=== PATIENT | female | born 2000 | race Caucasian/White ===

== ENCOUNTER 2019-05-24 00:46 | Emergency (ER) | payer SELFPAY ==
--- NOTE | ~2019-05-24 | XR_ITS ---
XR ankle RT min 3V DATE: 05/24/2019 01:12 INDICATION: Twisted ankle. Pain and swelling. TECHNIQUE: 4 views COMPARISON: None FINDINGS: No fracture or dislocation of the ankle or disruption of the ankle mortise. IMPRESSION: Negative Reviewed, dictated and finalized at location [facility]. UNIT TEACHER IMPRESSION: Negative
--- NOTE | 2019-05-24 00:57 | ED.LOWEXIN ---
HPI - Extremity Injury (Lower) General Chief Complaint: Extremity Injury, Lower Stated Complaint: Right ankle injury Time Seen by Provider: 05/24/19 00:50 Source: patient and family Mode of arrival: ambulatory Limitations: no limitations History of Present Illness HPI Narrative: A 19-year-old woman with history of a right patellar fracture comes in today complaining of right anterolateral ankle swelling and discomfort. Patient states that yesterday afternoon she twisted it while walking. She states that her pain with weight-bearing is gotten worse throughout the day. She has been limping. She denies any numbness, tingling, recent illness, fever. She states the pain radiates to her right medial knee. complaint: ankle injury Injury: Right: ankle Type of Injury: inversion Place: home Severity: moderate Relieving factors: rest Exacerbating factors: weight bearing, movement and palpation Context: walking Associated symptoms: swelling and able to partially bear weight Treatments prior to arrival: NSAIDS Related Data Home Medications Medication Instructions Recorded Confirmed albuterol sulfate 1 inh INHALATION QID PRN 05/24/19 05/24/19 Allergies Allergy/AdvReac Type Severity Reaction Status Date / Time No Known Allergies Allergy Unverified 09/30/16 14:35 Review of Systems Constitutional: Constitutional: Denies chills, Denies fever(s) and Denies weakness ENT: Denies dysphagia, Denies nasal congestion and Denies sore throat Cardiovascular: Cardiovascular: Denies chest pain and Denies radiating jaw, neck or arm pain Respiratory: Respiratory: Reports cough, Denies dyspnea and Denies wheezing Gastrointestinal: Gastrointestinal: Denies abdominal pain, Denies nausea and Denies vomiting Musculoskeletal: Musculoskeletal: Denies myalgias, Reports arthralgias, Reports joint swelling and Denies muscle cramps Integumentary/Breasts: Skin/Breast: Denies pruritus and Denies rash Neurologic: Denies vertigo, Denies syncope, Denies focal weakness and Denies numbness Psychiatric: Psychiatric: Denies anxiety and Denies depression Endocrine: Endocrine: Denies polydipsia and Denies polyuria Hematologic/Lymphatic: Hematologic/Lymphatic: Denies easy bleeding and Denies easy bruising Allergic/Immunologic: Allergic/Immunologic: Denies lip swelling and Denies wheezing PMFSH Past Medical History Medical History Asthma Fracture of right patella Ovarian cyst Social History Social History Smoking status: Current every day smoker Alcohol intake: current Alcohol use details: occasional Substance use: current Substance use type: marijuana Living arrangements: with family Exam Const: General: healthy appearing and alert Orientation/consciousness: patient oriented x3 Limitations: no limitations Other: mild acute distress. Resp: Effort & Inspection: normal respiratory effort, not labored and no retractions Auscultation: clear to auscultation bilaterally, no rales, no rhonchi and no wheezes Cardio: Rate: regular rate Rhythm: regular rhythm Heart sounds: no murmurs Skin: General skin exam: normal color, no jaundice and no pallor Rashes: no rashes Neuro: General: patient oriented x3, moves all extremities, no focal motor deficits and CN's II-XI intact bilaterally Extrem: General: normal to inspection and no clubbing, cyanosis or edema Other: Mild swelling without warmth or erythema on the right anterolateral ankle. There is mild tenderness over the right lateral malleolus but there is no deformity. Decreased range of motion secondary to discomfort. There is no tenderness along the calcaneus, metatarsals or the tarsals on the right. Mild tenderness to palpation of the medial joint line and the medial patella of the right knee. Normal range of motion without laxity. do a fusion to go warmth er
[2019-05-24 01:00] VITALS: BP 130/76; PULSE 100; RESP 20; TEMP 36.6; O2SAT 100
[2019-05-24 01:14] LABS: Pregnancy On Board Control Positive; Urine Pregnancy Test Negative
[2019-05-24 01:18] LABS: Specific Gravity Ur 1.025 (1.010-1.035)
[2019-05-24] MEDS: IBUPROFEN 400 MG TABLET PO (01:25)
[2019-05-24 02:01] VITALS: BP 120/72; PULSE 100; RESP 18; O2SAT 98
== END 2019-05-24 02:03 | disposition home or self-care (01) ==
PROVIDERS: Emergency Provider Emergency Medicine; PCP Family Medicine
DX: S93.491A Sprain of other ligament of right ankle, initial encounter (principal); X50.1XXA Overexertion from prolonged static or awkward postures, initial encounter
CPT/HCPCS: 29515; 73610; 81025; 99283; A9270; L0120

== ENCOUNTER 2019-12-12 15:14 | Emergency (ER) | payer BC, SELFPAY ==
--- NOTE | ~2019-12-12 | US_ITS ---
US OB >= 14 weeks Fetus DATE: 12/12/2019 16:14 INDICATION: Abdominal pain. 14 week gestation TECHNIQUE: Real-time imaging and Doppler analysis COMPARISON: None FINDINGS: Live nava intrauterine gestation, fetus active in a variable position during the exami nation. Anterior placenta. Subjectively normal amount of amniotic fluid. heart rate of 163 bpm. Biparietal diameter 3.11 cm; 15 weeks 5 days estimated gestational age Head circumference 11.44 cm; 15 weeks 4 days Abdominal circumference 8.66 cm; 15 weeks Femur length 1.45 cm; 14 weeks 2 days Composite age by [place] formula is 15 weeks 1 day +/- 1 week; JERMAINE by ultrasound is 06/03/2020 compar ed to 06/06/2020 by LMP. Estimated weight 105 +/- 16 grams. Head circumference/abdominal circumference measures 1.32, within normal range of 1.05-1.38. The ovaries are unremarkable; there is vascular flow to both ovaries. No pelvic mass or abnormal pelv ic fluid collection is detected. IMPRESSION: Estimated gestational age of 15 weeks 1 day +/- 1 week; JERMAINE by ultrasound is 06/03/2020 No significant abnormality identified Reviewed, dictated and finalized at Location [facility]. Reviewed, dictated and finalized at location A. IMPRESSION: Estimated gestational age of 15 weeks 1 day +/- 1 week; JERMAINE by ultr asound is 06/03/2020 No significant abnormality identified
[2019-12-12 15:24] VITALS: BP 130/66; PULSE 116; RESP 18; TEMP 36.6; O2SAT 100
[2019-12-12 15:36] LABS: Basophils Percent Auto 0.4 % (0.2-1.2); Eosinophils Absolute Auto 0.2 K/mm3 (0-0.3); Eosinophils Percent Auto 2.1 % (0-4.4); Hematocrit 34.8 % (37.0-47.0); Hemoglobin 11.8 g/dL (12.0-15.0); Immature Granulocyte Absolute 0.02 K/mm3 (0.00-0.031); Immature Granulocyte Percent A 0.2 % (0-0.5); Lymphocytes Absolute Auto 1.55 K/mm3 (0.9-3.2); Mean Corpuscular HGB Conc 33.9 g/dl (32-36); Mean Corpuscular Hemoglobin 31.2 pg (26-34); Mean Corpuscular Volume 92.1 fl (80-100); Mean Platelet Volume 11.1 fl (7.4-10.4); Monocytes Absolute Auto 0.5 K/mm3 (0.1-0.6); Monocytes Percent Auto 4.9 % (2.6-8.5); Neutrophils Absolute Auto 6.9 K/mm3 (1.3-6.7); Neutrophils Percent Auto 75.4 % (45.5-73.1); Platelet Count Result 232 k/mm3 (150-375); Red Blood Count 3.78 M/mm3 (4.2-5.4); Red Cell Distribution Width 13.2 % (11.5-14.5); White Blood Count 9.1 K/mm3 (4.5-10.0)
--- NOTE | 2019-12-12 15:39 | ED.ABDPAIN ---
HPI - Abdominal Pain General Chief Complaint: Abdominal Pain Stated Complaint: right lower abd pain/17 weeks preg Time Seen by Provider: 12/12/19 15:37 Source: patient Mode of arrival: ambulatory Limitations: no limitations History of Present Illness HPI narrative: Patient is a 19-year-old female currently 14 weeks who presents for evaluation of abdominal pain. Patient states she has had a one-week history of worsening, intermittent sharp abdominal pain that is located throughout her abdomen. She states she does feel the pain more severely on the right side and states that sometimes it radiates up into her right upper abdomen.No associated fever; she has had nausea associated with this . No worsened nausea or vomiting this week. She denies hematuria or dysuria. Patient's ENTERTAINMENT DIRECTOR is at [facility] of [facility]. Patient states she lives closest to this facility which is why she sought care here. She denies any recent fall, trauma or vaginal intercourse. She denies any vaginal bleeding, discharge or loss of fluids. Related Data Home Medications Medication Instructions Recorded Confirmed albuterol sulfate 1 inh INHALATION QID PRN 05/24/19 05/24/19 Allergies Allergy/AdvReac Type Severity Reaction Status Date / Time No Known Allergies Allergy Verified 12/12/19 15:35 Review of Systems Review of Systems: Narrative: CONSTITUTIONAL: Denies fever, chills, or sweats. CARDIOVASCULAR: Denies chest pain, palpitations, or edema. RESPIRATORY: Denies cough or dyspnea. GASTROINTESTINAL: Reports abdominal pain, nausea associate with , denies vomiting. GENITOURINARY: Denies dysuria or hematuria. SKIN: Denies rash or itching. MUSCULOSKELETAL: Denies back pain, joint pain, or myalgia. NEUROLOGIC: Denies headache, numbness, or weakness. P [facility] Past Medical History Medical History Asthma Bipolar depression Fracture of right patella Ovarian cyst Social History Social History Smoking status: Current every day smoker Alcohol intake: current Substance use: current Substance use type: marijuana Exam Narrative: Exam Narrative: GENERAL: Awake, alert, conversant HEAD: Normocephalic, atraumatic. EYES: PERRLA and EOMI. ENT: Nares clear, no rhinorrhea or epistaxis. Mucous membranes moist. NECK: Supple. CHEST: No respiratory distress, breathing even and non labored HEART: Regular rate, sinus rhythm ABDOMEN:Non distended, non tender, fundus palpable below the umbilicus, no focal right lower quadrant tenderness, nonrigid, no guarding, negative psoas sign EXTREMITIES: Normal range of motion. No edema. SKIN: Warm, dry, no rash. NEURO:No focal deficits. Alert and oriented x3 Course Vital Signs Vital signs: Vital Signs Temperature 36.6 C 12/12/19 15:24 Pulse Rate 116 H 12/12/19 15:24 Respiratory Rate 18 12/12/19 15:24 Blood Pressure 130/66 12/12/19 15:24 Pulse Oximetry 100 12/12/19 15:24 Temperature 36.6 C 12/12/19 15:24 Pulse Rate 116 H 12/12/19 15:24 Respiratory Rate 18 12/12/19 15:24 Blood Pressure 130/66 12/12/19 15:24 Pulse Oximetry 100 12/12/19 15:24 MDM - Abdominal Pain MDM Narrative Medical decision making narrative: Patient presented for evaluation of abdominal pain in the setting of second trimester . At the time of initial assessment, ABCs are intact and vital signs are stable. Patient does not have any focal tenderness on exam and has quite a benign abdominal exam. Patient was concern for acute appendicitis versus possible miscarriage although she states she is not having any bleeding, vaginal discharge or loss of fluids. Laboratory work-up is reassuring. She has stable, mild anemia which she is being treated for. No leukocytosis. I do not feel that patient has systemic symptoms of infection, and clinically she does not have findings
[2019-12-12 15:47] LABS: Alanine Aminotransferase 11 U/L (4-35); Albumin Level 4.1 g/dL (3.5-5.1); Alkaline Phosphatase 48 U/L (38-126); Anion Gap 6 mmol/L (8-16); Aspartate Amino Transferase 17 U/L (14-36); Bilirubin,Total 0.3 mg/dL (0.2-1.3); Blood Urea Nitrogen 5 mg/dL (7-17); Calcium 8.4 mg/dL (8.4-10.2); Carbon Dioxide 23 mmol/L (22-30); Chloride 107 mmol/L (98-107); Estimated CRCL calculation 168 ml/min; Estimated Glomerular Filt Rate > 60; Glucose 94 mg/dL (65-105); Lipase 60 U/L (23-300); Potassium 3.7 mmol/L (3.4-5.0); Sodium 136 mmol/L (137-145)
[2019-12-12 16:39] LABS: Add Urine Microscopic? YES; Appearance Urine Cloudy (Clear); Bacteria Urine Trace /hpf; Bilirubin Urine Negative (Negative); Blood Urine Negative (Negative); Color Urine Yellow (Yellow); Glucose Urine UA Negative (Negative); Ketones Urine Negative (Negative); Leukocyte Esterase Ur Negative LEU/UL (Negative); Mucus Urine Heavy /lpf; Nitrate Urine Negative (Negative); Protein Urine Negative (Negative); RBC Urine 0-2 /hpf (0-2); Squamous Epithelial Cell Urine Few /hpf (Few); WBC Urine 0-3 /hpf
== END 2019-12-12 17:29 | disposition home or self-care (01) ==
PROVIDERS: Family Medicine; Emergency Provider Emergency Medicine
DX: O26.892 Other specified pregnancy related conditions, second trimester (principal); R10.9 Unspecified abdominal pain; R82.71 Bacteriuria; O99.512 Diseases of the respiratory system complicating pregnancy, second trimester; J45.909 Unspecified asthma, uncomplicated; O99.332 Smoking (tobacco) complicating pregnancy, second trimester; F17.200 Nicotine dependence, unspecified, uncomplicated; Z3A.15 15 weeks gestation of pregnancy
CPT/HCPCS: 36415; 76805; 80053; 81001; 83690; 85025; 99284

== ENCOUNTER 2022-05-17 16:37 | Outpatient (CLI) | payer OTHER, SELFPAY ==
--- NOTE | ~2022-05-17 | US_ITS ---
EXAMINATION: US OB limited DATE: 05/17/2022 19:03 INDICATION: Leaking amniotic fluid index during third trimester . TECHNIQUE: Real-time ultrasound of the pelvis was performed. The interpreting radiologist was not pre sent for the study. COMPARISON: None. FINDINGS: There is a single living fetus in vertex presentation. Cervical length measures approximately 5.1 cm. The placenta is fundal. heart rate is 144 beats per minute (bpm). The amniotic fluid index is 15.9 cm, which is normal. IMPRESSION: 1. Single living fetus in vertex presentation with heart rate of 144 bpm. 2. Normal amniotic fluid index of 15.9 cm. Reviewed, dictated and finalized at location A. INTERPRETER IMPRESSION: 1. Single living fetus in vertex presentation with heart rate of 144 bpm . 2. Normal amniotic fluid index of 15.9 cm.
--- NOTE | 2022-05-17 16:45 | PC.NURSE ---
ROM plus performed. Cervical exam 2/thick/-3.
--- NOTE | 2022-05-17 17:25 | PC.NURSE ---
Sarah BORDEN updated with the pt possible ROM. ROM plus negative x2. Pt has watery discharge present. Order received for pt to have an RUFINA done.
[2022-05-17 17:46] VITALS: BP 128/80; PULSE 95
== END 2022-05-17 19:15 | disposition home or self-care (01) ==
LOC: ANHOBOP 17:37 → ANHLDR 17:37
PROVIDERS: Visit Provider Obstetrics & Gynecology
DX: O46.90 Antepartum hemorrhage, unspecified, unspecified trimester (principal); Z3A.00 Weeks of gestation of pregnancy not specified
CPT/HCPCS: 59025; 76815; 84112; 99199

== ENCOUNTER 2022-05-27 04:59 | Inpatient (IN) | payer OTHER, SELFPAY ==
[2022-05-27] VITALS (118 sets, daily range): BP systolic 91–142; BP diastolic 39–99; PULSE 49–130; RESP 18; TEMP 36.5–37; O2SAT 97–100; BMI 29.3
--- NOTE | 2022-05-27 05:30 | LDADM ---
This patient, Ingrid Coppola, was admitted to Labor/Delivery/Recovery 104 on 05/27/22 at 04:59. Plans for labor, pain management and were discussed with patient. Patient/family oriented to hospital policies and general routines including ID bracelet, bed and alarms, visiting hours, pain management, procedures, bathroom and other care routines, personal items, smoking policy, room service/diet and guest tray routines, infant security routines, and visiting hours. Patient/Family are encouraged to report perceived risks to care and to ask questions if they do not understand what they are told or what they should do. See OBIX for further documentation.
[2022-05-27 06:04] LABS: Basophils Absolute Auto 0.1 K/mm3 (0.0-0.1); Basophils Percent Auto 0.5 % (0.2-1.2); Eosinophils Absolute Auto 0.1 K/mm3 (0-0.3); Eosinophils Percent Auto 1.4 % (0-4.4); Hematocrit 32.5 % (37.0-47.0); Hemoglobin 10.3 g/dL (12.0-15.0); Immature Granulocyte Absolute 0.07 K/mm3 (0.00-0.031); Immature Granulocyte Percent A 0.7 % (0-0.5); Lymphocytes Absolute Auto 1.79 K/mm3 (0.9-3.2); Lymphocytes Percent Auto 17.3 % (18.3-44.2); Mean Corpuscular HGB Conc 31.7 g/dl (32-36); Mean Corpuscular Hemoglobin 27.1 pg (26-34); Mean Corpuscular Volume 85.5 fl (80-100); Mean Platelet Volume 12.1 fl (7.4-10.4); Monocytes Absolute Auto 0.6 K/mm3 (0.1-0.6); Monocytes Percent Auto 6.1 % (2.6-8.5); Neutrophils Absolute Auto 7.6 K/mm3 (1.3-6.7); Platelet Count Result 226 k/mm3 (150-375); Red Cell Distribution Width 14.8 % (11.5-14.5); White Blood Count 10.3 K/mm3 (4.5-10.0)
[2022-05-27] MEDS: LACTATED RINGERS 1,000 ML 125 ML IV CONT ×3 (06:54→13:55)
[2022-05-27] MEDS: OXYTOCIN 30 UNITS/NS 500 ML 30 UNITS/500 ML BAG IV CONT (06:55)
[2022-05-27] MEDS: AMPICILLIN 2 GM/NS 100 ML 2 GM/100 ML BAG IVPB (07:00)
--- NOTE | 2022-05-27 07:45 | PM.IMHP ---
H&P: HPI History of Present Illness Date/Time: 05/27/22 07:45 Chief Complaint: induction of labor Narrative: 22yo at 39.2 for elective IOL. complicated only by anemia and GBS pos. Review of Systems Review of Systems: All systems reviewed & are unremarkable except as noted in HPI and below PMFSH Family History Family History (Updated 05/27/22 @ 05:47 by Shanta Barnett RN) Other Unknown family medical history Social History Social History Smoking status: Former smoker Tobacco type: cigarettes and e-cigarettes/vaping Substance use: never Lack of Transportation: No Lack of Food: Never True Current Housing: I Have Housing Concerned About Future Housing: No Difficulty Paying Gas/Electric Bills: No Difficulty Paying for Meds: No Currently Unemployed: No Education: High School Diploma/GED Difficulty w/ Childcare or Family Care: No Spiritual care concerns: No Meds Home Medications and Allergies Home Medications Medication Instructions Recorded Confirmed Type Chewable Iron PO DAILY 05/27/22 History albuterol sulfate 90 mcg/actuation 2 puff inhalation PRN PRN 05/27/22 05/27/22 History aerosol inhaler Shortness Of Breath mv-mn no.97-folic 180 mcg-dha 25 1 tablet PO DAILY 05/27/22 05/27/22 History mg-herb no.293 25 mg chewable tablet (Alive Daily Support ) Allergies Allergy/AdvReac Type Severity Reaction Status Date / Time No Known Allergies Allergy Verified 05/27/22 05:43 Vital Signs Vital Signs - 24 hr 05/27/22 05:19 05/27/22 05:31 05/27/22 05:46 Pulse Rate 123 H 101 H 97 Blood Pressure 134/84 128/77 120/68 Oxygen Delivery 05/27/22 06:01 05/27/22 06:04 05/27/22 06:16 Pulse Rate 118 H 79 84 Blood Pressure 118/39 L 118/68 118/70 Oxygen Delivery 05/27/22 06:31 05/27/22 06:46 05/27/22 07:01 Pulse Rate 93 92 88 Blood Pressure 122/77 111/70 114/68 Oxygen Delivery 05/27/22 07:16 05/27/22 07:31 05/27/22 05:27 Pulse Rate 74 77 Blood Pressure 110/63 91/50 L Oxygen Delivery Room Air 05/27/22 05:47 Pulse Rate 97 Blood Pressure 120/68 Oxygen Delivery Exam Const: General: no acute distress Resp: Effort & Inspection: normal respiratory effort Auscultation: clear to auscultation bilaterally Cardio: Rate: regular rate Rhythm: regular rhythm GI: GI Palp: Yes Soft to palpation Extrem: General: normal to inspection H&P: Results Labs Labs: Short CBC 05/27/22 Range/Units 05:58 WBC 10.3 H (4.5-10.0) K/mm3 Hgb 10.3 L (12.0-15.0) g/dL Hct 32.5 L (37.0-47.0) % Plt Count 226 (150-375) k/mm3 Assessment and Plan Assessment and plan (1) Anemia affecting : Code(s): O99.019 - Anemia complicating , unspecified trimester Status: Acute (2) Elective induction of labor planned: Status: Acute Plan GBS pos, antibiotics running pitocin plan arom FHT category 1
[2022-05-27 10:02] LABS: Rapid Plasma Reagin Non-Reactive (NonReactive)
[2022-05-27] MEDS: AMPICILLIN 1 GM/NS 50 ML 1 GM/50 ML BAG IVPB ×2 (11:06→15:08)
--- NOTE | 2022-05-27 11:12 | WPDANESEPP ---
Anes - Eval Pre Procedure Procedure: Labor Epidural Date/Time: 05/27/22 11:12 Surgeon: Enrike Preop Diagnosis: Pain during labor Pre Op Diagnosis: IOL Patient Data Age: 22 Gender: F Height: 1.7 m Weight: 85 kg Last Vital Signs Pulse 66 05/27/22 11:01 BP 111/65 05/27/22 11:01 O2 Del Method Room Air 05/27/22 05:27 Allergies Allergy/AdvReac Type Severity Reaction Status Date / Time No Known Allergies Allergy Verified 05/27/22 05:43 Home Medications Medication Instructions Recorded Confirmed Type Chewable Iron PO DAILY 05/27/22 History albuterol sulfate 90 mcg/actuation 2 puff inhalation PRN PRN 05/27/22 05/27/22 History aerosol inhaler Shortness Of Breath mv-mn no.97-folic 180 mcg-dha 25 1 tablet PO DAILY 05/27/22 05/27/22 History mg-herb no.293 25 mg chewable tablet (Alive Daily Support ) Laboratory Tests 05/27/22 05/27/22 05/27/22 05:58 05:58 05:58 WBC 10.3 K/mm3 H K/mm3 (4.5-10.0) RBC 3.80 M/mm3 L M/mm3 (4.2-5.4) Hgb 10.3 g/dL L g/dL (12.0-15.0) Hct 32.5 % L % (37.0-47.0) MCV 85.5 fl fl (80-100) MCH 27.1 pg pg (26-34) MCHC 31.7 g/dl L g/dl (32-36) RDW 14.8 % H % (11.5-14.5) Plt Count 226 k/mm3 k/mm3 (150-375) MPV 12.1 fl H fl (7.4-10.4) Immature Gran % (Auto) 0.7 % H % (0-0.5) Neut % (Auto) 74.0 % H % (45.5-73.1) Lymph % (Auto) 17.3 % L % (18.3-44.2) [place] % (Auto) 6.1 % % (2.6-8.5) Eos % (Auto) 1.4 % % (0-4.4) Baso % (Auto) 0.5 % % (0.2-1.2) Lymph # (Auto) 1.79 K/mm3 K/mm3 (0.9-3.2) [place] # (Auto) 0.6 K/mm3 K/mm3 (0.1-0.6) Eos # (Auto) 0.1 K/mm3 K/mm3 (0-0.3) Baso # (Auto) 0.1 K/mm3 K/mm3 (0.0-0.1) Abs Immat Gran (auto) 0.07 K/mm3 H K/mm3 (0.00-0.031) Absolute Neuts (auto) 7.6 K/mm3 H K/mm3 (1.3-6.7) Absolute Nucleated RBC 0.0 K/mm3 K/mm3 (0.0-0.012) Nucleated RBC % 0.0 % % (0.0-0.2) RPR Non-reactive (NonReactive) Blood Type A Positive Antibody Screen Negative Patient hx anesthesia problems: none Family hx anesthesia problems: none Results Review: All pre-operative results and documents have been reviewed as part of the pre-operative evaluation. [facility] Family History Family History Other Unknown family medical history Social History Social History Smoking status: Former smoker Tobacco type: cigarettes and e-cigarettes/vaping Substance use: never Lack of Transportation: No Lack of Food: Never True Current Housing: I Have Housing Concerned About Future Housing: No Difficulty Paying Gas/Electric Bills: No Difficulty Paying for Meds: No Currently Unemployed: No Education: High School Diploma/GED Difficulty w/ Childcare or Family Care: No Spiritual care concerns: No Exam Day of Procedure 05/27/22 11:12 Patient weight: normal Neurological: alert and oriented
--- NOTE | 2022-05-27 16:04 | PM.OBPRVD ---
OB - Delivery Note Procedure Delivery date: 05/27/22 Procedure: Events: Elective Induction of Labor Induction method: AROM and Per Pitocin Protocol Delivery monitor: External FHT and External Uterine Route of delivery: Laceration Description: None Specimen: No Quantitative Blood Loss (ml): 140 Anesthesia type: Epidural Disposition: Floor Narrative: With adequate expulsive efforts by the mother, the baby's head was delivered OA. The baby's anterior shoulder was delivered under the pubic symphysis without difficulty. The posterior shoulder and the rest of the baby delivered without difficulty. The infant was placed on the mothers chest and suctioned and stimulated. The cord was clamped and cut after 30 seconds. Mother and baby both stable. Baby Date of : 05/27/22 Time of : 15:49 Weeks of gestation at delivery: 39 Infant gender: Male Weight (pounds): 7 Weight (ounces): 5 presentation: vertex Placenta delivery description: Spontaneous Cord Vessel Description: 3 Vessels, Nuchal Cord and Delayed Cord Clamping score one minute: 8 score five minutes: 9
[2022-05-27] MEDS: OXYTOCIN 30 UNITS/NS 500 ML 30 UNITS/500 ML BAG 125 UNITS IV CONT (16:37)
--- NOTE | 2022-05-27 21:29 | OBPPTRN ---
05/27/2022 at 1852 Patient transferred to post room #279 in wheelchair. Support person present. Oriented to unit, room, information board, rooming in, admission packet and security measures. Patient verbalizes understanding.
[2022-05-28 03:35] VITALS: BP 120/69; PULSE 63; RESP 16; TEMP 36.6
[2022-05-28 05:05] LABS: Hematocrit 29.7 % (37.0-47.0); Hemoglobin 9.1 g/dL (12.0-15.0)
--- NOTE | 2022-05-28 07:19 | PM.OBPNVD ---
OB - PN: Subj Subjective Date/time seen: 05/28/22 07:19 Patient comments: no complaints and pain well controlled baby status: doing well and bottle feeding well Narrative: would like DC home today OB - PN: Obj Data Labs 05/28/22 03:41 Labs: Laboratory Results - last 24 hr 05/27/22 05/28/22 05:58 03:41 Hgb 9.1 L Hct 29.7 L RPR Non-reactive OB - PN A/P Plan day: 1 Plan: routine care and discharge home Comments: circ done after consented home if ok with peds (GBS pos, adequately treated) Time Spent With Patient Time: Total time spent is greater than 50% in coordination of care (as documented) at patient's floor/unit and/or counseling patient: Time with patient: less than 15 minutes Exam Narrative: NAD abdomen soft, nontender, fundus firm below the umbilicus Extremities nontender, 1+ edema
--- NOTE | 2022-05-28 07:21 | PM.OBDSVD ---
DS: Admitting Diagnosis Discharge Date 05/28/22 Admitting Diagnosis term , elective induction DS: Discharge Diagnosis Discharge Diagnosis (1) , delivered: Code(s): O80 - Encounter for full-term uncomplicated delivery Status: Acute OB - DS: Summary Hospital Course Hospital Course: Ingrid was admitted for an elective induction. She had an uncomplicated vaginal delivery and course and was discharged home on PPD 1 in stable condition. OB Procedures : Ultrasound OB Procedures Intrapartum: Spontaneous Vag Delivery OB Procedures: : None Peripartum Data Delivery Method: Natural Vaginal complications: none Status at Discharge Functional status at discharge: independent ambulation Time Spent with Patient Time attestation: Total time spent providing and/or coordinating discharge services: Exam Narrative: NAD abdomen soft, appropriately tender Ext non tender, 1+ edema DS: Data Data Completed and Pending Labs on day of discharge: Labs from last 24 hours 05/28/22 05/27/22 03:41 05:58 Hgb 9.1 L Hct 29.7 L RPR Non-reactive Discharge Plan Discharge Attending physician on discharge: Marry Calvert Discharging Clinician: Marry Calvert Anticipated Discharge Date/Time: 05/28/22 17:00 Patient Disposition: Home, Self-Care Activity: pelvic rest Diet: regular Patient Instructions: Antibiotic Form Stand Alone Forms: General Discharge Information Follow-up/Referrals: Marry Calvert MD [Physician] - 4 Weeks Discharge Medications: Continued albuterol sulfate 90 mcg/actuation HFA aerosol inhaler 2 puff INHALATION PRN PRN (Reason: Shortness Of Breath) Alive Daily Support 180 mcg-25 mg- 25 mg Tablet,Chewable 1 tablet PO DAILY Chewable Iron PO DAILY Date of admission: 05/27/22 04:59 Primary Care Provider: PHYSICIAN,INSTRUMENT REPAIR SPECIALIST Admitting Provider: Marry Calvert Attending physician on admission: Marry Calvert Condition: Stable
[2022-05-28 07:35] VITALS: BP 126/79; PULSE 73; RESP 16; TEMP 36.6; O2SAT 100
[2022-05-28] MEDS: DOCUSATE SODIUM 100 MG CAPSULE PO ×2 (08:38→16:22)
[2022-05-28] MEDS: POLYSACCHARIDE IRON COMPLEX 150 MG CAPSULE PO ×2 (08:38→16:22)
[2022-05-28] MEDS: MULTIVIT/MIN/PREN/FOL AC/IRON TABLET 1 TAB PO (08:38)
--- NOTE | 2022-05-28 09:25 | WPDANLDPN2 ---
Anes-Prog Note L&D Date/Time: 05/28/22 09:25 Comfortable throughout: labor and delivery Neuraxial method: epidural Epidural/Spinal procedure site: clean & non-tender Neuro status: Neuro function grossly intact. Cardiovascular status: normal Respiratory status: normal Airway patency: baseline Mental status: baseline Post-Op hydration status: normal Vital Signs: Last Vital Signs Temp 97.8 F 05/28/22 07:35 Pulse 73 05/28/22 07:35 Resp 16 05/28/22 07:35 BP 126/79 05/28/22 07:35 Pulse Ox 100 05/28/22 07:35 O2 Del Method Room Air 05/28/22 07:50 Pain score (VAS): 0/10 I/O: Intake & Output 05/27/22 05/28/22 05/28/22 23:59 07:59 15:59 Output Total 68 Balance -68 Post-procedural complaints: none Patient feedback: Patient satisfied with anesthetic care.
[2022-05-28 12:08] VITALS: BP 115/74; PULSE 76; RESP 16; TEMP 36.9; O2SAT 100
[2022-05-28] MEDS: ACETAMINOPHEN 325 MG TABLET 650 MG PO (14:12)
[2022-05-28 19:16] VITALS: BP 136/86; PULSE 80; RESP 16; TEMP 36.5
[2022-05-29] MEDS: POLYSACCHARIDE IRON COMPLEX 150 MG CAPSULE PO (07:11)
[2022-05-29] MEDS: ACETAMINOPHEN 325 MG TABLET 650 MG PO (07:11)
[2022-05-29] MEDS: DOCUSATE SODIUM 100 MG CAPSULE PO (07:11)
--- NOTE | 2022-05-29 07:17 | PM.OBPNVD ---
OB - PN: Subj Subjective Date/time seen: 05/29/22 07:17 Patient comments: no complaints baby status: doing well Narrative: Ped wanted baby to stay. Doing well. no concerns. OB - PN: Obj Data Labs 05/28/22 03:41 OB - PN A/P Plan day: 2 Plan: routine care and discharge home Time Spent With Patient Time: Total time spent is greater than 50% in coordination of care (as documented) at patient's floor/unit and/or counseling patient: Time with patient: less than 15 minutes Exam Narrative: NAD abdomen soft, nontender, fundus firm below the umbilicus Extremities nontender, 1+ edema
[2022-05-29 07:25] VITALS: BP 122/73; PULSE 69; RESP 16; TEMP 36.8; O2SAT 99
== END 2022-05-29 11:30 | disposition home or self-care (01) | DRG 807 ==
LOC: ANHLDR 05:06 → ANHOB2 18:57
PROVIDERS: Admitting Provider Obstetrics & Gynecology; Visit Provider Obstetrics & Gynecology
DX: O99.824 Streptococcus B carrier state complicating childbirth (principal); Z37.0 Single live birth; O99.02 Anemia complicating childbirth; D64.9 Anemia, unspecified; O76 Abnormality in fetal heart rate and rhythm complicating labor and delivery; O69.81X0 Labor and delivery complicated by cord around neck, without compression, not applicable or unspecified; Z3A.39 39 weeks gestation of pregnancy
CPT/HCPCS: 36415; 85014; 85018; 85025; 86592; 86850; 86900; 86901; A9270; J0290; J2590; J2795; J7120